=== PATIENT | male | born 1965 | race Caucasian/White ===

== ENCOUNTER → 2019-11-23 | Outpatient (CLI) | payer OTHER ==
--- NOTE | 2019-11-23 18:46 | Diagnostic Imaging Report ---
EXAM: CT Abdomen and Pelvis WITHOUT contrast INDICATION: Left flank pain ^[id number] ^[id number] ^RENAL STONE PROTOCOL COMPARISON: None. TECHNIQUE: Abdomen and pelvis were scanned utilizing a multidetector helical scanner from the lung base to the pubic symphysis without administration of IV contrast. Absence of intravenous contrast decreases sensitivity for detection of focal lesions and vascular pathology. Coronal and sagittal reformations were obtained. Renal stone protocol was performed. Dose modulation, iterative reconstruction, and/or weight based adjustment of the mA/kV was utilized to reduce the radiation dose to as low as reasonably achievable. IV CONTRAST: None. ORAL CONTRAST: None RADIATION DOSE: Total DLP: 3234.53 mGy*cm Estimated effective dose: (DLP x 0.015 x size factor) mSv COMPLICATIONS: None FINDINGS: Limitations: There is marked artifact throughout the examination related to body habitus attenuation. A portion of the right lateral abdomen is not included in the [id number]. LINES and TUBES: None. LOWER THORAX: There is a nonspecific 6 mm nodule at the lateral left lung base in the costophrenic angle. No other focal opacities in the lung bases. Heart size normal. HEPATOBILIARY: Much of the liver is obscured by artifact and a portion of the liver is not included in the [id number]. No focal hepatic lesions. No biliary ductal dilation. GALLBLADDER: Surgical absence of the gallbladder with cholecystectomy clips present. SPLEEN: No splenomegaly. PANCREAS: No focal masses or ductal dilatation. ADRENALS: No adrenal nodules KIDNEYS/URETERS: There is mild fullness of the left renal collecting system. No obvious contour deforming mass lesions. Intraparenchymal abnormalities might be obscured by artifact. There are bilateral nonobstructing intrarenal calculi measuring 7 and 8 mm on the right, and 8 mm on the left. There is a 7 mm calcification along the expected path of the mid left ureter, although the ureter itself is partially obscured by artifact, the appearance is compatible with a mid ureteral calculus. GI TRACT: No abnormal distention, wall thickening, or evidence of bowel obstruction. The cecal area is not fully included in the [id number], and the appendix is not visualized. PELVIC ORGANS/BLADDER: Urinary bladder unremarkable. Focal densities near the left side of the bladder base might be related to artifact or small calcifications. No discrete abnormal mass or fluid collection is seen in the pelvis. LYMPH NODES: Within the limits of the examination artifact, no obvious dominant lymph node mass is seen in the abdomen, retroperitoneum or pelvis. VESSELS: Unenhanced abdominal aorta is nondilated. PERITONEUM / RETROPERITONEUM: No pneumoperitoneum or ascites. BONES: No acute or suspicious bony lesions. Degenerative changes are seen in the spine. Mild anterior wedging of the L1 vertebral body may be congenital or related to previous injury. SOFT TISSUES: Superficial surrounding soft tissue unremarkable. There is a small right inguinal hernia containing fat. IMPRESSION: 1. Mild fullness of left renal collecting system with apparent 7 mm calculus in the mid left ureter. 2. Bilateral nonobstructing intrarenal calculi are noted. 3. There are punctate densities near the left UVJ. These are likely due to artifact although a calculus measuring 2 to 3 mm at the UVJ is not excluded. 4. Nonspecific 6 mm nodule at the left lung base. Consider follow-up noncontrast chest CT in 6-12 months. Staff: Bharat Signed by: Dr. Miguel Nicholson M.D. on 11/23/2019 6:44 PM
== END ==
LOC: CT 17:01
PROVIDERS: ATTEND Family Medicine
DX: R10.9 Unspecified abdominal pain (principal); R31.9 Hematuria, unspecified
CPT/HCPCS: 74176

== ENCOUNTER → 2023-04-22 | Outpatient (CLI) | payer BC | LOC: WCC 08:00 | PROVIDERS: ATTEND Family Medicine Adult Medicine | DX: E11.621 Type 2 diabetes mellitus with foot ulcer (principal); L97.518 Non-pressure chronic ulcer of other part of right foot with other specified severity; S80.811A Abrasion, right lower leg, initial encounter; R60.0 Localized edema | CPT/HCPCS: 36415; 80053; 83036; 84134; 85025 ==